=== PATIENT | female | born 1955 | race Caucasian/White ===

== ENCOUNTER → 2018-03-04 | Outpatient (CLI) | payer OTHER ==
[2012-08-09 20:20] VITALS: BP 112/66
[~2018-03-04] MED LIST: PROVERA 10MG10 MG PO; RANITIDINE150 MG PO; [UNRECOGNIZED DRUG - OTHER]; [UNRECOGNIZED DRUG - OTHER] PO
== END ==
LOC: LAB 18:38
DX: S60.94 Unspecified superficial injury of other fingers (principal); Z77.21 Contact with and (suspected) exposure to potentially hazardous body fluids; W46.0XXA Contact with hypodermic needle, initial encounter; Y93.F9 Activity, other caregiving; Y99.0 Civilian activity done for income or pay

== ENCOUNTER → 2018-03-25 | Outpatient (CLI) | payer OTHER ==
[2012-08-09 20:20] VITALS: BP 112/66
== END ==
LOC: MAMMO 11:56
DX: Z12.31 Encounter for screening mammogram for malignant neoplasm of breast (principal)

== ENCOUNTER → 2019-08-24 | Outpatient (CLI) | payer OTHER ==
[2012-08-09 20:20] VITALS: BP 112/66
== END ==
LOC: MAMMO 07:45
DX: Z12.31 Encounter for screening mammogram for malignant neoplasm of breast (principal)

== ENCOUNTER → 2019-09-19 | Outpatient (CLI) | payer OTHER ==
[2012-08-09 20:20] VITALS: BP 112/66
== END ==
LOC: LAB 12:36
DX: Z20.828 Contact with and (suspected) exposure to other viral communicable diseases (principal)

== ENCOUNTER → 2020-01-02 | Outpatient (CLI) | payer OTHER ==
[2012-08-09 20:20] VITALS: BP 112/66
== END ==
LOC: RAD 09:37
DX: Z01.419 Encounter for gynecological examination (general) (routine) without abnormal findings (principal); R10.9 Unspecified abdominal pain

== ENCOUNTER → 2020-03-07 | Outpatient (CLI) | payer OTHER ==
[2012-08-09 20:20] VITALS: BP 112/66
== END ==
LOC: LAB 14:54
DX: U07.1 COVID-19 (principal)

== ENCOUNTER → 2020-03-31 | Outpatient (CLI) | payer OTHER ==
[2012-08-09 20:20] VITALS: BP 112/66
[2020-03-31 13:55] LABS: EOS # 0.1 (0.04-0.40); HEMATOCRIT 39.2 % (37.0-47.0); HEMOGLOBIN 12.4 g/dL (12.5-16.0); LYMPH# 1.6 (1.50-4.00); MEAN CELL VOLUME 97 fl (78-100); MEAN CORPUSCULAR HEMOGLOBIN 31 pg (27-31); MEAN CORPUSCULAR HGB CONC 32 g/dL (33-37); MEAN PLATELET VOLUME 9.2 fl (7.4-10.4); MONO # 0.5 (0.20-0.80); NEU # 2.7 (1.40-6.50); PLATELET COUNT 227 K/mm3 (130-400); RED BLOOD COUNT 4.03 M/mm3 (4.10-5.30); RED CELL DISTRIBUTION WIDTH 13.9 % (11.5-14.5); WHITE BLOOD COUNT 4.8 K/mm3 (4.8-10.8)
[2020-03-31 13:59] LABS: POTASSIUM 4.1 mmol/L (3.5-5.1)
[2020-03-31 14:00] LABS: ALBUMIN 3.9 g/dL (3.4-4.8)
[2020-03-31 14:01] LABS: TOTAL PROTEIN 6.4 g/dL (6.2-8.1)
[2020-03-31 14:03] LABS: TOTAL BILIRUBIN 0.4 mg/dL (0.2-1.2)
[2020-03-31 14:15] LABS: D-DIMER 0.32 mg/L FEU (0.15-0.50)
== END ==
LOC: LAB 13:31
PROVIDERS: Nurse Practitioner
DX: U07.1 COVID-19 (principal)

== ENCOUNTER → 2020-04-02 | Outpatient (CLI) | payer OTHER ==
[2012-08-09 20:20] VITALS: BP 112/66
== END ==
LOC: RAD 12:42
DX: R06.09 Other forms of dyspnea (principal); Z86.19 Personal history of other infectious and parasitic diseases

== ENCOUNTER → 2021-01-18 | Outpatient (REF) | LOC: LAB 11:39 | DX: Z20.822 Contact with and (suspected) exposure to COVID-19 (principal) ==

== ENCOUNTER → 2021-02-08 | Outpatient (CLI) | payer OTHER | LOC: LAB 12:16 | DX: U07.1 COVID-19 (principal) ==

== ENCOUNTER → 2021-11-20 | Outpatient (REF) | LOC: LAB 12:29 | DX: Z20.822 Contact with and (suspected) exposure to COVID-19 (principal) ==

== ENCOUNTER → 2022-05-01 | Outpatient (CLI) | payer OTHER | LOC: RAD 01-20 17:45 | DX: R93.0 Abnormal findings on diagnostic imaging of skull and head, not elsewhere classified (principal) | CPT/HCPCS: A9575 ==

== ENCOUNTER → 2023-03-06 | Outpatient (CLI) | payer OTHER | LOC: RAD 09:23 | DX: M19.012 Primary osteoarthritis, left shoulder (principal) ==

== ENCOUNTER → 2023-04-02 | Outpatient (CLI) | payer OTHER | LOC: RAD 16:32 | DX: Z12.39 Encounter for other screening for malignant neoplasm of breast (principal); M50.321 Other cervical disc degeneration at C4-C5 level; M50.322 Other cervical disc degeneration at C5-C6 level ==

== ENCOUNTER → 2023-05-12 | Outpatient (CLI) | payer OTHER | LOC: RAD 12:29 | DX: K80.20 Calculus of gallbladder without cholecystitis without obstruction (principal); M54.2 Cervicalgia; M54.50 Low back pain, unspecified; M25.551 Pain in right hip ==

== ENCOUNTER → 2023-08-19 | Outpatient (CLI) | payer OTHER | LOC: RAD 07:30 | DX: S73.101A Unspecified sprain of right hip, initial encounter (principal); R19.00 Intra-abdominal and pelvic swelling, mass and lump, unspecified site; S16.1XXD Strain of muscle, fascia and tendon at neck level, subsequent encounter; S20.221D Contusion of right back wall of thorax, subsequent encounter; S70.01XD Contusion of right hip, subsequent encounter; S50.01XD Contusion of right elbow, subsequent encounter; S00.83XD Contusion of other part of head, subsequent encounter ==

== ENCOUNTER → 2024-05-05 | Outpatient (CLI) | payer OTHER | LOC: MAMMO 10:42 | DX: Z12.31 Encounter for screening mammogram for malignant neoplasm of breast (principal); N63.10 Unspecified lump in the right breast, unspecified quadrant ==